=== PATIENT | female | born 1990 | race Caucasian/White ===

== ENCOUNTER → 2018-06-13 | Outpatient (CLI) | payer BC, OTHER | END | disposition home or self-care (01) | LOC: CFH 09:35 | PROVIDERS: ATTEND Nurse Practitioner | DX: Z12.31 Encounter for screening mammogram for malignant neoplasm of breast (principal); Z15.01 Genetic susceptibility to malignant neoplasm of breast; Z80.3 Family history of malignant neoplasm of breast | CPT/HCPCS: 76377; 76642; 77063; 77067 ==

== ENCOUNTER → 2018-08-25 | Outpatient (CLI) | payer BC ==
[~2018-08-25] MED LIST: GADOBUTROL 7.5 MMOL/7.5 ML VIAL ONE
== END | disposition home or self-care (01) ==
LOC: CFH 11:54
PROVIDERS: ATTEND Surgery
DX: Z15.01 Genetic susceptibility to malignant neoplasm of breast (principal); Z80.3 Family history of malignant neoplasm of breast
CPT/HCPCS: A9585; C8908

== ENCOUNTER 2020-07-21 04:31 | Inpatient (IN) | payer BC ==
[~2020-07-21] VITALS: Ht 165.1 cm; Wt 68.0 kg
[2020-07-21 05:06] VITALS: BP 125/78
[2020-07-21] MEDS ORDERED: OXYTOCIN 30U/ 0.9% NaCL 500ML 500 ML ONE (05:49)
[2020-07-21] MEDS ORDERED: METOCLOPRAMIDE 5 MG/ML, 2ML ONE (05:49)
[2020-07-21] MEDS ORDERED: NEWBORN KIT ONE (05:51)
[2020-07-21] MEDS ORDERED: AZITHROMYCIN 500 MG in SODIUM CHLORIDE 0.9% 250 ML IV ONE (06:00)
[2020-07-21] MEDS ORDERED: CEFAZOLIN PMX 1GM/50ML 50 ML IVPB ONE (06:00)
[2020-07-21] MEDS ORDERED: LACTATED RINGERS 1,000 ML IVBOLUS ONE (06:00)
[2020-07-21] MEDS ORDERED: ONDANSETRON 2MG/ML, 2ML IVPush ONE (06:00)
[2020-07-21] MEDS ORDERED: SODIUM CITRATE/CITRIC ACID 30 ML UDC PO ONE (06:00)
[2020-07-21] MEDS ORDERED: CALCIUM CARBONATE 500 MG TAB.CHEW PO PRN ×2 (06:00→08:30)
[2020-07-21] MEDS ORDERED: METOCLOPRAMIDE 5 MG/ML, 2ML IV ONE (06:00)
[2020-07-21] MEDS ORDERED: KETOROLAC 30 MG/1 ML ONE (06:18)
[2020-07-21] MEDS ORDERED: CEFAZOLIN 1,000 MG ONE (06:18)
[2020-07-21] MEDS ORDERED: OXYTOCIN 10 UNITS/ML, 1ML ONE (06:18)
[2020-07-21] MEDS ORDERED: FENTANYL PF 100 MCG/2ML ONE (06:18)
[2020-07-21] MEDS ORDERED: PHENYLEPHRINE 10 MG/ML ONE (06:18)
[2020-07-21] MEDS ORDERED: EPHEDRINE 50 MG/ML, 1ML ONE (06:18)
[2020-07-21] MEDS ORDERED: DEXAMETHASONE 4 MG/ML, 1ML ONE (06:18)
[2020-07-21] MEDS ORDERED: ONDANSETRON 2MG/ML, 2ML ONE (06:18)
[2020-07-21] MEDS ORDERED: ONDANSETRON 2MG/ML, 2ML IVPush PRN (06:30)
[2020-07-21] MEDS ORDERED: MIDAZOLAM 1 MG/ML, 2ML IV PRN (06:30)
[2020-07-21] MEDS ORDERED: PROMETHAZINE 25 MG/ML, 1ML IV PRN (06:30)
[2020-07-21] MEDS ORDERED: HYDROmorphone 2 MG/ML, 1ML IVPush PRN (06:30)
[2020-07-21] MEDS ORDERED: HYDROcodone/APAP 7.5-325MG/15ML UDC PO PRN (06:30)
[2020-07-21] MEDS ORDERED: ALBUTEROL SULFATE 2.5 MG/3 ML NPPB PRN (06:30)
[2020-07-21] MEDS ORDERED: hydrALAzine 20 MG/ML, 1ML IV PRN (06:30)
[2020-07-21] MEDS ORDERED: FENTANYL PF 100 MCG/2ML IV PRN (06:30)
[2020-07-21] MEDS ORDERED: MEPERIDINE/PF 25MG/0.5ML IVPush PRN (06:30)
[2020-07-21] MEDS ORDERED: OXYcodone 5 MG/5 ML ORAL.SOL UDC PO PRN (06:30)
[2020-07-21] MEDS ORDERED: LABETALOL 5MG/ML, 20ML IV PRN (06:30)
[2020-07-21] MEDS ORDERED: EPHEDRINE 50 MG/ML, 1ML IVPush PRN (06:30)
[2020-07-21] MEDS ORDERED: METOPROLOL 1 MG/ML, 5ML IV PRN (06:30)
[2020-07-21 06:32] LABS: BASOPHILS % (AUTO) 1 % (0-1); EOSINOPHILS % (AUTO) 2 % (1-7); LYMPHOCYTES % (AUTO) 18 % (22-44); MEAN CORPUSCULAR HEMOGLOBIN 31.6 pg (27.0-34.8); MEAN CORPUSCULAR HGB CONC 33.6 g/dL (32.4-35.8); MEAN PLATELET VOLUME 9.6 fL (7.4-10.4); MONOCYTES % (AUTO) 6 % (2-9); NEUTROPHILS % (AUTO) 73 % (42-75); PLATELET COUNT 161 x10^3/uL (130-400); RED BLOOD COUNT 3.79 x10^6/uL (3.82-5.3)
[2020-07-21 06:34] LABS: MD NO
[2020-07-21] MEDS ORDERED: MONT10TA6 PO (07:26)
[2020-07-21] MEDS ORDERED: AMPH20TA2 PO (07:26)
[2020-07-21] MEDS ORDERED: HYDROmorphone 2 MG/ML, 1ML ONE (07:42)
[2020-07-21] MEDS ORDERED: morphine SULFATE 10 MG/ML, 1ML IVPush PRN (08:30)
[2020-07-21] MEDS ORDERED: METHYLERGONOVINE 0.2 MG/ML IM PRN (08:30)
[2020-07-21] MEDS ORDERED: ACETAMINOPHEN 325 MG TABLET PO PRN (08:30)
[2020-07-21] MEDS: LACTATED RINGERS 1,000 ML IV SCH ×4 (08:30→18:16)
[2020-07-21] MEDS ORDERED: MISOPROSTOL 200 MCG TABLET PR PRN (08:30)
[2020-07-21] MEDS ORDERED: CARBOPROST TROMETHAMINE 250 MCG/ML, 1ML IM PRN (08:30)
[2020-07-21] MEDS ORDERED: ONDANSETRON 2MG/ML, 2ML IV PRN (08:30)
[2020-07-21] MEDS ORDERED: OXYcodone/APAP 5/325MG TABLET PO PRN (08:30)
[2020-07-21] MEDS ORDERED: HYDROcodone/APAP 7.5-325MG/15ML UDC ONE ×2 (08:58→09:00)
[2020-07-21] MEDS: OXYTOCIN 30U/ 0.9% NaCL 500ML 500 ML IV SCH ×2 (09:34→18:17)
[2020-07-21 10:00] VITALS: BP 110/66
[2020-07-21] MEDS: IBUPROFEN 600 MG TABLET PO PRN ×3 (11:44→23:59)
[2020-07-21] MEDS: PRENATAL VIT/IRON/FA 1 EACH TABLET PO SCH (11:45)
[2020-07-21] MEDS: SIMETHICONE 80 MG CHEW TAB PO PRN ×3 (11:45→23:59)
[2020-07-21] MEDS: MORPHINE SULFATE 4 MG/ML, 1ML IVPush PRN ×2 (11:53→18:45)
[2020-07-21] MEDS: OXYcodone/APAP 5/325MG TABLET PO PRN ×3 (13:06→21:01)
[2020-07-21 14:06] VITALS: BP 105/62
[2020-07-21 16:10] LABS: BASOPHILS % (AUTO) 1 % (0-1); EOSINOPHILS % (AUTO) 0 % (1-7); LYMPHOCYTES % (AUTO) 8 % (22-44); MEAN CORPUSCULAR HEMOGLOBIN 31.6 pg (27.0-34.8); MEAN PLATELET VOLUME 9.9 fL (7.4-10.4); MONOCYTES % (AUTO) 3 % (2-9); NEUTROPHILS % (AUTO) 88 % (42-75); PLATELET COUNT 153 x10^3/uL (130-400); RED BLOOD COUNT 3.48 x10^6/uL (3.82-5.3)
[2020-07-21 16:12] LABS: MD NO
[2020-07-21 18:00] VITALS: BP 115/68
[2020-07-21 19:45] VITALS: BP 110/68
[2020-07-21] MEDS: DOCUSATE 100 MG CAPSULE PO PRN (21:01)
[2020-07-22] VITALS: BP 110/71
[2020-07-22] MEDS: LACTATED RINGERS 1,000 ML IV SCH ×5 (00:30→16:30)
[2020-07-22] MEDS: OXYcodone/APAP 5/325MG TABLET PO PRN ×6 (01:02→21:29)
[2020-07-22] MEDS: OXYTOCIN 30U/ 0.9% NaCL 500ML 500 ML IV SCH ×2 (04:30→14:30)
[2020-07-22 04:50] VITALS: BP 103/66
[2020-07-22 07:35] VITALS: BP 105/69
[2020-07-22] MEDS: PRENATAL VIT/IRON/FA 1 EACH TABLET PO SCH (07:40)
[2020-07-22] MEDS: SIMETHICONE 80 MG CHEW TAB PO PRN ×2 (07:40→19:33)
[2020-07-22] MEDS: DOCUSATE 100 MG CAPSULE PO PRN ×2 (07:40→19:33)
[2020-07-22] MEDS: IBUPROFEN 600 MG TABLET PO PRN ×3 (07:40→19:33)
[2020-07-22 20:00] VITALS: BP 116/75
[2020-07-23] MEDS: OXYTOCIN 30U/ 0.9% NaCL 500ML 500 ML IV SCH (00:30)
[2020-07-23] MEDS: LACTATED RINGERS 1,000 ML IV SCH ×3 (00:30→08:30)
[2020-07-23] MEDS: OXYcodone/APAP 5/325MG TABLET PO PRN ×3 (01:25→10:23)
[2020-07-23] MEDS: IBUPROFEN 600 MG TABLET PO PRN ×2 (01:25→08:19)
[2020-07-23] MEDS: SIMETHICONE 80 MG CHEW TAB PO PRN ×2 (01:25→08:19)
[2020-07-23] MEDS: DOCUSATE 100 MG CAPSULE PO PRN (08:19)
[2020-07-23] MEDS: PRENATAL VIT/IRON/FA 1 EACH TABLET PO SCH (08:19)
[2020-07-23] MEDS ORDERED: OXYC-302 PO (09:11)
[2020-07-23] MEDS ORDERED: IBUP-1222 PO (09:11)
[2020-07-23 10:16] VITALS: BP 106/67
== END 2020-07-23 11:20 | disposition home or self-care (01) | DRG 785 ==
LOC: LDOP 04:31 → LDIP 05:49 → 2NW 09:58
PROVIDERS: ADMIT Obstetrics & Gynecology; ATTEND Obstetrics & Gynecology
PROC: 10D00Z1 Extraction of Products of Conception, Low, Open Approach (ICD-10-PCS; principal; 2020-07-21)
PROC: 0UB70ZZ Excision of Bilateral Fallopian Tubes, Open Approach (ICD-10-PCS; 2020-07-21)
DX: O77.0 Labor and delivery complicated by meconium in amniotic fluid (principal); O99.52 Diseases of the respiratory system complicating childbirth; J45.909 Unspecified asthma, uncomplicated; Z20.828 Contact with and (suspected) exposure to other viral communicable diseases; O99.824 Streptococcus B carrier state complicating childbirth; Z37.0 Single live birth; Z3A.38 38 weeks gestation of pregnancy; O34.211 Maternal care for low transverse scar from previous cesarean delivery; O9A.12 Malignant neoplasm complicating childbirth; C50.919 Malignant neoplasm of unspecified site of unspecified female breast; F90.9 Attention-deficit hyperactivity disorder, unspecified type; O99.344 Other mental disorders complicating childbirth; Z80.3 Family history of malignant neoplasm of breast
CPT/HCPCS: 36415; 85025; 86592; 86850; 86900; 87635; 88302; 89060; G0378; J0690; J1100; J1170; J1885; J2405; J3010; J2270; J2370; J2590; J2765; J7120; Q0114